=== PATIENT | female | born 1980 | race Caucasian/White ===

== ENCOUNTER 2022-09-13 22:08 | Emergency (ER) | payer OTHER ==
[2022-09-13 22:14] VITALS: RESP 18; TEMP 98.3
[2022-09-13] MEDS ORDERED: predniSONE 20 MG TAB PO STA (22:40)
[2022-09-13] MEDS ORDERED: valACYclovir HCL 1,000 MG TABLET PO STA (22:40)
--- NOTE | 2022-09-13 22:46 | ED ---
Neuro HPI - General Chief Complaint: Neuro Symptoms/Deficit Stated Complaint: Ear infection Time Seen by Provider: 09/13/22 22:19 Source: patient Mode of arrival: ambulatory Limitations: no limitations - History of Present Illness Is the patient presenting with stroke symptoms?: No Last Known Well Date: 09/13/22 Last Known Well Time: 11:00 -: hour(s) Initial Comments: This patient is a 42-year-old woman who presents with complaint of having left ear pain, left facial weakness, and blurred vision on the left eye. She states that she began having pain a few days ago, was seen in clinic and given eardrops. She states she tends to get recurring ear infections every month or so going back for many many years. Patient states that today around 11 AM she noticed that she was having some weakness and numbness of the left side of her face. She states that when she was smiling the left side of her face was not moving. She also notes that she cannot close her left eye well and it feels like its getting dry and that her vision is a little blurry. She denies any weakness or numbness throughout the remainder of her body. No change in hearing. She has not noticed fever or chills. No skin rash noted Location: left face History of same: Yes Place: home Severity: moderate Quality: weak, numb Improves With: none Worsens With: none Context: gradual onset Associated Symptoms: other Treatments Prior to Arrival: none - Related Data Home Medications: Previous Rx's Medication Instructions Recorded predniSONE 60 mg PO DAILY #42 tab 09/13/22 valACYclovir HCL [Valacyclovir] 1,000 mg PO TID #21 tab 09/13/22 Allergies/Adverse Reactions: Allergies Allergy/AdvReac Type Severity Reaction Status Date / Time shellfish derived [Shellfish] Allergy Swelling Verified 09/13/22 22:14 Review of Systems ROS Statement: Those systems with pertinent positive or pertinent negative responses have been documented in the HPI. ROS Other: All systems not noted in ROS Statement are negative. Constitutional: Denies: fever, chills, weakness Eyes: Reports: vision change. Denies: eye pain ENT: Reports: ear pain. Denies: hearing loss, congestion Respiratory: Denies: cough, dyspnea Cardiovascular: Denies: chest pain, palpitations, edema, syncope Gastrointestinal: Denies: abdominal pain, vomiting, diarrhea Musculoskeletal: Denies: back pain Skin: Denies: rash Neurological: Reports: weakness, numbness. Denies: headache, confusion General Exam Limitations: no limitations General appearance: alert, in no apparent distress Head exam: Present: atraumatic, normocephalic Eye exam: Present: PERRL, EOMI. Absent: scleral icterus, conjunctival injection, periorbital swelling, periorbital tenderness ENT exam: Present: normal oropharynx, mucous membranes moist, TM's normal bilaterally, normal external ear exam Neck exam: Present: normal inspection. Absent: tenderness, meningismus, full ROM, lymphadenopathy Respiratory exam: Present: normal lung sounds bilaterally. Absent: respiratory distress, wheezes, rales, rhonchi, stridor Cardiovascular Exam: Present: regular rate, normal rhythm, normal heart sounds. Absent: systolic murmur, diastolic murmur, rubs, gallop GI/Abdominal exam: Present: soft. Absent: tenderness, guarding, rebound Extremities exam: Present: normal inspection, normal capillary refill. Absent: pedal edema, calf tenderness Back exam: Present: normal inspection. Absent: CVA tenderness (R), CVA tenderness (L) Neurological exam: Present: alert, oriented X3. Absent: CN II-XII intact, motor sensory deficit Expanded Patient oriented to: Present: person, place, time Speech: Present: fluid speech Cranial nerves: EOM's Intact: Normal, Gag Reflex: Normal, Tongue Deviation: Normal, Facial Palsy without Forehead Movement: Abnormal Left Sensory exam: Upper Extremity Light Touch: Normal Motor strength exam: RUE: 5, LUE: 5, RLE: 5, LLE: 5 Eye Response: (4) open spontaneously Motor Response: (6) obeys commands Verbal Response: (5) oriented Skin exam: Present: warm, dry, intact, normal color. Absent: rash Stroke MDM - Lab Data Result diagrams: 09/13/22 22:54 09/13/22 22:54 Lab Results 09/13/22 09/13/22 Range/Units 22:54 22:54 WBC 7.2 (3.8-10.6) k/uL RBC 4.68 (3.80-5.40) m/uL Hgb 14.6 (11.4-16.0) gm/dL Hct 43.6 (34.0-46.0) % MCV 93.2 (80.0-100.0) fL MCH 31.3 (25.0-35.0) pg MCHC 33.6 (31.0-37.0) g/dL RDW 12.3 (11.5-15.5) % Plt Count 232 (150-450) k/uL MPV 8.4 Neutrophils % 44 % Lymphocytes % 43 % Monocytes % 7 % Eosinophils % 4 % Basophils % 1 % Neutrophils # 3.1 (1.3-7.7) k/uL Lymphocytes # 3.1 (1.0-4.8) k/uL Monocytes # 0.5 (0-1.0) k/uL Eosinophils # 0.3 (0-0.7) k/uL Basophils # 0.1 (0-0.2) k/uL Sodium 139 (137-145) mmol/L Potassium 4.6 (3.5-5.1) mmol/L Chloride 106 (98-107) mmol/L Carbon Dioxide 24 (22-30) mmol/L Anion Gap 9 mmol/L BUN 21 H (7-17) mg/dL Creatinine 0.84 (0.52-1.04) mg/dL Est GFR (CKD-EPI)AfAm >90 (>60 ml/min/1.73 sqM) Est GFR (CKD-EPI)NonAf 87 (>60 ml/min/1.73 sqM) Glucose 93 (74-99) mg/dL Calcium 9.5 (8.4-10.2) mg/dL Past Medical History Past Medical History: No Reported History History of Any Multi-Drug Resistant Organisms: None Reported Past Surgical History: No Surgical Hx Reported Past Psychological History: No Psychological Hx Reported Smoking Status: Current every day smoker Past Alcohol Use History: None Reported Past Drug Use History: None Reported Course Vital Signs 09/13/22 22:10 Temperature 98.3 F Pulse Rate 74 Respiratory 18 Rate Blood Pressure 177/88 O2 Sat by Pulse 99 Oximetry Disposition Clinical Impression: Garrido's palsy Disposition: HOME SELF-CARE Condition: Good Instructions (If sedation given, give patient instructions): Garrido Palsy (ED) Prescriptions: predniSONE 60 mg PO DAILY #42 tab valACYclovir HCL [Valacyclovir] 1,000 mg PO TID #21 tab Is patient prescribed a controlled substance at d/c from ED?: No Referrals: None,Stated [Primary Care Provider] - 1-2 days
--- NOTE | 2022-09-13 23:05 | CT ---
EXAMINATION TYPE: CT brain wo con DATE OF EXAM: 09/13/2022 COMPARISON: None HISTORY: Left side ear pain and facial weakness. CT DLP: 1119.4 mGycm Automated exposure control for dose reduction was used. Images obtained of the brain with no contrast. Ventricles and sulci appear normal. There is no mass effect or midline shift. No sign of intracranial hemorrhage. Calvarium is intact. There is normal aeration of the mastoid sinuses. IMPRESSION: Normal unenhanced head CT scan.
[2022-09-13 23:12] LABS: Basophils # (A) 0.1 k/uL (0-0.2); Basophils % (A) 1 %; Eosinophils # (A) 0.3 k/uL (0-0.7); Eosinophils % (A) 4 %; HCT 43.6 % (34.0-46.0); HGB 14.6 gm/dL (11.4-16.0); Lymphocytes # (A) 3.1 k/uL (1.0-4.8); Lymphocytes % (A) 43 %; MCH 31.3 pg (25.0-35.0); MCHC 33.6 g/dL (31.0-37.0); MCV 93.2 fL (80.0-100.0); Mean Platelet Volume 8.4; Monocytes # (A) 0.5 k/uL (0-1.0); Monocytes % (A) 7 %; Neutrophils # (A) 3.1 k/uL (1.3-7.7); Neutrophils % (A) 44 %; Platelet Count 232 k/uL (150-450); RBC 4.68 m/uL (3.80-5.40); RDW 12.3 % (11.5-15.5); WBC 7.2 k/uL (3.8-10.6)
[2022-09-13 23:21] LABS: African American GFR (CKD) >90 (>60 ml/min/1.73 sqM); Anion Gap 9 mmol/L; Blood Urea Nitrogen 21 mg/dL (7-17); Calcium 9.5 mg/dL (8.4-10.2); Carbon Dioxide 24 mmol/L (22-30); Chloride 106 mmol/L (98-107); Glucose 93 mg/dL (74-99); Non-African American GFR(CKD) 87 (>60 ml/min/1.73 sqM); Potassium 4.6 mmol/L (3.5-5.1); Sodium 139 mmol/L (137-145)
[2022-09-14 00:20] VITALS: BP 166/99; PULSE 70
== END 2022-09-14 00:19 | disposition home or self-care (01) ==
LOC: EC 22:08
DX: G51.0 Bell's palsy (principal); F17.200 Nicotine dependence, unspecified, uncomplicated; Z91.013 Allergy to seafood
CPT/HCPCS: 36415; 80048; 85025; 70450; 99285; J7512

== ENCOUNTER → 2023-05-03 | Outpatient (CLI) | payer OTHER ==
[2023-05-03 12:42] LABS: ALT 13 U/L; AST 13 U/L; Albumin 4.1 d/dL; Albumin/Globulin Ratio 2.16 Ratio; Alkaline Phosphatase 65 U/L; BUN/Creat Ratio 27.17 Ratio; Blood Urea Nitrogen 16.3 mg/dL; Calcium 9.3 mg/dL; Carbon Dioxide 26.3 mmol/L; Chloride 105 mmol/L; Globulin 1.9 d/dL; Glucose 86 mg/dL; Potassium 4.7 mmol/L; Sodium 142 mmol/L; T4, Free (Free Thyroxine) 1.35 ng/dL; Total Bilirubin 0.2 mg/dL
== END | disposition home or self-care (01) ==
LOC: LABWHC1 07:22
PROVIDERS: ATTEND Nurse Practitioner
DX: R63.5 Abnormal weight gain (principal)
CPT/HCPCS: 36415; 80053; 83036; 83525; 84403; 84439; 84443; 84481